=== PATIENT | female | born 1945 | race Caucasian/White ===

== ENCOUNTER 2022-08-04 06:26 | Day surgery (SDC) | payer OTHER ==
[2022-08-03 11:35] VITALS: BMI 24.0
[2022-08-04] MEDS ORDERED: CELECOXIB 200 MG CAPSULE PO ONE (06:54)
[2022-08-04] MEDS ORDERED: MIDAZOLAM HCL 2 MG/2 ML SINGLE DOSE VIAL ONE ×2 (07:33→10:04)
[2022-08-04] MEDS ORDERED: ceFAZolin SODIUM 1 GM VIAL ONE ×2 (07:35→07:40)
[2022-08-04] MEDS ORDERED: ONDANSETRON 4 MG/2 ML VIAL ONE (07:35)
[2022-08-04] MEDS ORDERED: DEXAMETHASONE SOD PHOSPHATE 4 MG/1 ML VIAL ONE (07:35)
[2022-08-04] MEDS ORDERED: BUPIVACAINE HCL/PF 0.5% (5MG/ML) 10 ML VIAL ONE (07:39)
[2022-08-04] MEDS ORDERED: BUPIVACAINE LIPOSOME/PF (EXPAREL) 266 MG/20 ML VIAL ONE (07:39)
[2022-08-04] MEDS ORDERED: VANCOMYCIN 1,000 MG VIAL (RESTRICTED TO ID ONLY) ONE (07:40)
[2022-08-04] MEDS ORDERED: CEFAZOLIN 2 GM in DEXTROSE 5%-WATER - 50 ML IVPB ONE (08:30)
[2022-08-04] MEDS ORDERED: TRANEXAMIC ACID 1000 MG/10 ML VIAL IVPUSH ONE (08:30)
[2022-08-04] MEDS ORDERED: MAG HYDROX/AL HYDROX/SIMETH 30 ML UNIT-DOSE CUP PO PRN (10:01)
[2022-08-04] MEDS ORDERED: ONDANSETRON 4 MG/2 ML VIAL IVPUSH PRN (10:01)
[2022-08-04] MEDS ORDERED: SUCCINYLCHOLINE CHLORIDE 200 MG/10 ML SYRINGE ONE (10:02)
[2022-08-04] MEDS ORDERED: PROPOFOL 40 ML ONE (10:02)
[2022-08-04] MEDS ORDERED: LACTATED RINGERS SOLUTION 1,000 ML IV SCH (10:15)
[2022-08-04] MEDS ORDERED: oxyCODONE HCL 5 MG TABLET PO PRN ×2 (12:45)
[2022-08-04] MEDS ORDERED: ACETAMINOPHEN 1000 MG/100 ML BAG IVPB ONE (12:45)
[2022-08-04] MEDS: KETOROLAC TROMETHAMINE 30 MG/1 ML VIAL IVPUSH SCH ×2 (13:00→18:19)
[2022-08-04] MEDS: CEFAZOLIN SODIUM 2 GM in DEXTROSE 5%-WATER 100 ML IVPB SCH (17:37)
[2022-08-04 21:04] VITALS: RESP 18
[2022-08-04] MEDS: oxyCODONE HCL 10 MG SUSTAINED ACTING TABLET PO SCH (21:32)
[2022-08-04] MEDS: SENNOSIDES/DOCUSATE COMBO (SENNA PLUS) TABLET (UD) PO SCH (21:32)
[2022-08-04] MEDS: ACETAMINOPHEN 500 MG TABLET (FP) PO SCH (21:33)
[2022-08-04] MEDS ORDERED: LATANOPROST 0.005% OPHTH SOLN 2.5ML BOTTLE OD SCH (22:00)
[2022-08-05] MEDS: CEFAZOLIN SODIUM 2 GM in DEXTROSE 5%-WATER 100 ML IVPB SCH (02:00)
[2022-08-05] MEDS: ACETAMINOPHEN 500 MG TABLET (FP) PO SCH ×2 (03:00→09:16)
[2022-08-05 06:27] VITALS: BP 123/44; PULSE 74; TEMP 98.6
[2022-08-05] MEDS ORDERED: ASPIRIN 325 MG TABLET PO SCH (08:00)
[2022-08-05 08:22] LABS: HEMATOCRIT 31.4 % (32.4-45.2); MCH 31.9 pg (25.7-33.7); MEAN CELL VOLUME 90.9 fl (80-96); MEAN PLT VOLUME 9.3 fl (7.5-11.1); PLATELET COUNT 274.4 10^3/uL (134-434); RBC 3.45 10^6/uL (3.60-5.2); RDW 13.7 % (11.6-15.6); WHITE BLOOD COUNT 15.6 10^3/uL (4.0-10.8)
[2022-08-05] MEDS: SENNOSIDES/DOCUSATE COMBO (SENNA PLUS) TABLET (UD) PO SCH (09:15)
[2022-08-05] MEDS: oxyCODONE HCL 10 MG SUSTAINED ACTING TABLET PO SCH (09:18)
[2022-08-05] MEDS ORDERED: METHYLPHENIDATE HCL 10 MG PO SCH (10:00)
[2022-08-05] MEDS ORDERED: MULTIVITAMINS (DAILY MVI) TABLET (FP) PO SCH (10:00)
[2022-08-05] MEDS ORDERED: PANTOPRAZOLE 40 MG TABLET PO SCH (10:00)
== END 2022-08-05 14:32 | disposition home health service (06) ==
LOC: FASUSAT 06:26 → FM/S 13:24 → FASUSAT 08-05 14:32
PROVIDERS: ATTEND Orthopaedic Surgery
PROC: 8E0YXBZ Computer Assisted Procedure of Lower Extremity (ICD-10-PCS; 2022-08-04)
PROC: 8E0Y0CZ Robotic Assisted Procedure of Lower Extremity, Open Approach (ICD-10-PCS; 2022-08-04)
PROC: 0SRC0J9 Replacement of Right Knee Joint with Synthetic Substitute, Cemented, Open Approach (ICD-10-PCS; principal; 2022-08-04 10:19)
DX: M17.11 Unilateral primary osteoarthritis, right knee (principal)
CPT/HCPCS: 20985; 27447; C1776; S2900; 36415; 73560-TC-RT-FY; 85027; 94760; 97010-GP; 97116-GP; 97162-GP; C1713; C1889